=== PATIENT | male | born 1935 | race Caucasian/White ===

== ENCOUNTER → 2016-11-24 | Day surgery (SDC) | payer MEDICARE ==
[~2016-11-24] VITALS: Ht 180.3 cm; Wt 59.9 kg
[~2016-11-24] MED LIST: ASPI1TAB69 PO; DO NOT ADM ANY ANTICOAGULANT DRUGS XX PRN; EPINEPHrine HCL (1:1000) 1 MG/ML VIAL ONE; INSULIN HUMAN REGULAR 1,000 UNITS/10 ML VIAL SQ PRN; LACTATED RINGER'S 1000 ML IV SCH; LIDOCAINE HCL 2% PF SOLN 10 ML VIAL ONE; LOVA40TA PO; METO50TA PO; METOPROLOL TARTRATE 25 MG TAB PO PRN; ONDANSETRON HCL 4 MG/2 ML VIAL IV PUSH ONE; PLAV75TA29 PO; PROPOFOL 200 MG/20 ML AMP IV ONE; SODIUM CHLOR 0.45% 1000 ML INJ 1,000 ML IV SCH; SODIUM CHLORID 0.9% 500 ML IV SCH; VITA2000 PO
[2016-11-24 07:03] VITALS: BP 120/68; PULSE 70; RESP 22; TEMP 97.3; O2SAT 100
[2016-11-24 07:10] LABS: AUTOMATED NEUTROPHIL # 4.5 TH/MM3 (1.8-7.7); BASOPHIL # 0.1 TH/MM3 (0-0.2); BASOPHIL % 0.8 % (0.0-2.0); EOSINOPHIL # 0.1 TH/MM3 (0-0.4); EOSINOPHIL % 1.7 % (0.0-4.0); HEMATOCRIT 33.3 % (39.0-51.0); HEMO FLAGS DIFF FINAL; LYMPHOCYTE # 1.7 TH/MM3 (1.0-4.8); MEAN CELL VOLUME 86.2 FL (80.0-100.0); MEAN CORPUSCULAR HEMOGLOBIN 29.6 PG (27.0-34.0); MEAN CORPUSCULAR HGB CONC 34.4 % (32.0-36.0); MONO % 9.9 % (0.0-8.0); NEUT % 63.6 % (16.0-70.0); PLATELET COUNT 245 TH/MM3 (150-450); RED BLOOD COUNT 3.86 MIL/MM3 (4.50-5.90); RED CELL DISTRIBUTION WIDTH 16.1 % (11.6-17.2); WHITE BLOOD COUNT 7.1 TH/MM3 (4.0-11.0)
[2016-11-24 07:22] LABS: APTT (PATIENT) 24.7 SEC (24.3-30.1); INTERNATIONAL NORMALIZED RATIO 1.1 RATIO
--- NOTE | 2016-11-24 09:18 | MR ---
cc: BRAN SOTOMAYOR M.D. DATE: 11/24/2016 PROCEDURE Fiberoptic bronchoscopy flexible. REASON FOR BRONCHOSCOPY Right upper lobe lung mass, malignancy suspect. DETAILS OF PROCEDURE Fiberoptic bronchoscopy performed via LMA. Vocal cords intact. Trachea moderately hyperemic. Flower sharp. Thick mucoid secretion throughout the tracheobronchial tree were removed. The left main stem bronchus, left upper and lower lobes no obstruction or mass lesion. The right main stem bronchus, right middle and lower lobes without obstruction. Right upper lobe with a tannish mass necrotic lesion, biopsy of which was taken x2. Washings were sent for cytology. Brushings as well were sent for cytological exam. Procedure well-tolerated. Patient transferred to Recovery in stable condition. IMPRESSION 1. Right upper lobe lung mass. 2. Samples obtained as above. 3. Procedure well-tolerated. 4. Patient transferred to Recovery in stable condition. MD GUERA Anne/VIOLETTE /9:06 AM /9:10 AM
[2016-11-24 10:18] VITALS: BP 108/59; PULSE 68; RESP 16; TEMP 97.6; O2SAT 100
--- NOTE | 2016-11-24 17:16 | EKG ---
Date Performed: 11/24/2016 Time Performed: 06:53:02 PTAGE: 81 years EKG: ATRIAL FLUTTER/TACHYCARDIA WITH SLOW VENTRICULAR RESPONSE BORDERLINE LEFT AXIS DEVIATION RI GHT BUNDLE BRANCH BLOCK MODERATE T-WAVE ABNORMALITY, CONSIDER INFERIOR ISCHEMIA Since previous tracin g, no significant change noted ABNORMAL ECG PREVIOUS TRACING : 09/18/2015 05.19 DOCTOR: Sher Palacio Interpretating Date/Time 11/24/2016 17:15:04
== END | disposition home or self-care (01) ==
LOC: HEND 05:49
PROVIDERS: ATTEND Internal Medicine Sleep Medicine
DX: R22.2 Localized swelling, mass and lump, trunk (principal); J44.9 Chronic obstructive pulmonary disease, unspecified; I48.92 Unspecified atrial flutter; I25.10 Atherosclerotic heart disease of native coronary artery without angina pectoris; I10 Essential (primary) hypertension; E78.5 Hyperlipidemia, unspecified
CPT/HCPCS: 00520; 31623; 31628; 85025; 85610; 85730; 88112; 88305; 93005; J2405; J7120; J0171